=== PATIENT | male | born 1985 | race Caucasian/White ===

== ENCOUNTER 2017-11-13 12:18 | Emergency (ER) | payer SELFPAY ==
[2017-11-13] MEDS ORDERED: Lactated Ringers 1,000 ML IV ONE (12:34)
[2017-11-13] MEDS ORDERED: Acetaminophen 500 MG Tab PO ONE (12:34)
--- NOTE | 2017-11-13 12:49 | EDM.PDOC ---
ED HPI GENERAL MEDICAL PROBLEM - General Chief Complaint: Gastrointestinal Problem Stated Complaint: POSSIBLE FLU Time Seen by Provider: 11/13/17 12:35 Source of Information: Reports: Patient, RN History Limitations: Reports: No Limitations - History of Present Illness INITIAL COMMENTS - FREE TEXT/NARRATIVE: 32 yo smoking male presents with fever and diarrhea since Tuesday. No nausea or vomiting. Last acetaminophen was about 0630h today. Has had a cough also that is occasionally productive. No SOB. Was seen in the clinic yesterday and no testing or treatment was advised. Not taking anything for his diarrhea sx's. Onset Date: 11/07/17 Duration: Day(s):, Constant Location: Reports: Abdomen (minimal cramping only) Severity: Mild Improves with: Reports: None Worsens with: Reports: None Context: Reports: Other (unknown) Associated Symptoms: Reports: Cough, Fever/Chills, Loss of Appetite. 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 (6 1/2 hrs ago last dose) Generalized Pain Score (Numeric/FACES): 4 - Related Data Allergies Allergy/AdvReac Type Severity Reaction Status Date / Time No Known Allergies Allergy Verified 11/13/17 12:33 Home Meds: Home Meds NK [No Known Home Meds] 01/26/14 [History] Past Medical History - Past Health History Medical/Surgical History: Denies Medical/Surgical History Social & Family History - Tobacco Use Smoking Status *Q: Unknown Ever Smoked Years of Tobacco use: 15 ED ROS GENERAL - Review of Systems Review Of Systems: See Below Constitutional: Reports: No Symptoms HEENT: Reports: No Symptoms Respiratory: Reports: No Symptoms Cardiovascular: Reports: No Symptoms Endocrine: Reports: No Symptoms GI/Abdominal: Reports: Diarrhea. Denies: Abdominal Pain, Black Stool, Bloody Stool, Constipation, Decreased Appetite, Distension, Flatus, Hematemesis, Hematochezia, Melena, Nausea, Stool Incontinence, Vomiting : Reports: No Symptoms Musculoskeletal: Reports: No Symptoms Skin: Reports: No Symptoms Neurological: Reports: No Symptoms Psychiatric: Reports: No Symptoms ED EXAM, GI/ABD - Physical Exam Exam: See Below Exam Limited By: No Limitations General Appearance: Alert, WD/WN, No Apparent Distress Eyes: Bilateral: Normal Appearance Ears: Normal External Exam, Normal Canal, Hearing Grossly Normal, Normal TMs Nose: Normal Inspection, Normal Mucosa, No Blood Throat/Mouth: Normal Inspection, Normal Lips, Normal Oropharynx, Normal Voice, No Airway Compromise Head: Atraumatic, Normocephalic Neck: Normal Inspection, Supple, Non-Tender Respiratory/Chest: No Respiratory Distress, Lungs Clear, Normal Breath Sounds, No Accessory Muscle Use Cardiovascular: Regular Rate, Rhythm, No Edema, Tachycardia GI/Abdominal Exam: Normal Bowel Sounds, Soft, Non-Tender, No Distention Back Exam: Normal Inspection. No: CVA Tenderness (R), CVA Tenderness (L) Extremities: Normal Inspection, Normal Range of Motion, Non-Tender, No Pedal Edema Neurological: Alert, Oriented, CN II-XII Intact, Normal Cognition, No Motor/ Sensory Deficits Psychiatric: Normal Affect, Normal Mood Skin Exam: Warm, Dry, Intact, Normal Color, No Rash Lymphatic: No Adenopathy Course - Vital Signs Last Recorded V/S: Last Vital Signs Temp 38.6 C H 11/13/17 12:30 Pulse 125 H 11/13/17 12:30 Resp 14 11/13/17 12:30 BP 137/82 11/13/17 12:30 Pulse Ox 96 11/13/17 12:30 Orthostatic Blood Pressure [ 116/71 Standing] Orthostatic Blood Pressure [ 127/73 Sitting] Orthostatic Blood Pressure [ 125/82 Supine] - Orders/Labs/Meds Orders: Active Orders 24 hr Category Date Time Status Orthostatic Vital Signs [RC] ASDIRECTED Care 11/13/17 14:27 Active CLOSTRIDIUM DIFFICILE BY PCR [RM] Stat Lab 11/13/17 14:46 Ordered Labs: Laboratory Tests 11/13/17 11/13/17 11/13/17 Range/Units 12:35 12:35 12:35 WBC 7.2 (4.5-11.0) K/uL RBC 4.96 (4.30-5.90) M/uL Hgb 15.8 H (12.0-15.0) g/dL Hct 46.4 (40.0-54.0) % MCV 94 (80-98) fL MCH 32 H (27-31) pg MCHC 34 (32-36) % Plt Count 98 L (150-400) K/uL Sodium 137 L (140-148) mmol/L Potassium 3.8 (3.6-5.2) mmol/L Chloride 100 (100-108) mmol/L Carbon Dioxide 24 (21-32) mmol/L Anion Gap 16.8 H (5.0-14.0) mmol/L BUN 13 (7-18) mg/dL Creatinine 1.0 (0.8-1.3) mg/dL Est Cr Clr Drug Dosing 93.49 mL/min Estimated GFR (MDRD) > 60 (>60) Glucose 113 H (74-106) mg/dL Lactic Acid 1.3 (0.4-2.0) mmol/L Calcium 8.4 L (8.5-10.1) mg/dL Meds: Medications Discontinued Medications Generic Name Dose Route Start Last Admin Trade Name Freq PRN Reason Stop Dose Admin Acetaminophen 1,000 mg 11/13/17 12:34 11/13/17 13:10 Tylenol Extra Strength PO 11/13/17 12:35 1,000 mg ONETIME ONE Administration Lactated Ringer's 1,000 mls @ 1,000 mls/hr 11/13/17 12:34 11/13/17 13:10 Ringers, Lactated IV 11/13/17 13:33 1,000 mls/hr BOLUS ONE Administration Departure - Departure Time of Disposition: 15:54 Disposition: Home, Self-Care 01 Condition: Fair Clinical Impression: Nausea vomiting and diarrhea, Mild dehydration - Discharge Information Referrals: PCP,None [Primary Care Provider] - Forms: ED Department Discharge - My Orders Last 24 Hours: My Active Orders 11/13/17 14:27 Orthostatic Vital Signs [RC] ASDIRECTED 11/13/17 14:46 CLOSTRIDIUM DIFFICILE BY PCR [RM] Stat - Assessment/Plan Last 24 Hours: My Active Orders 11/13/17 14:27 Orthostatic Vital Signs [RC] ASDIRECTED 11/13/17 14:46 CLOSTRIDIUM DIFFICILE BY PCR [RM] Stat
== END 2017-11-13 16:11 | disposition home or self-care (01) ==
LOC: JP.ED 12:18
DX: E86.0 Dehydration (principal); R11.2 Nausea with vomiting, unspecified; R19.7 Diarrhea, unspecified
CPT/HCPCS: 36415; 80048; 83605; 85027; 87493; 96360; 99284; A9270; J7120